=== PATIENT | female | born 1940 | race Caucasian/White ===

== ENCOUNTER 2017-12-25 22:17 | Emergency (ER) | payer OTHER ==
[2017-12-25 22:29] VITALS: BP 139/90; PULSE 81; TEMP 98.1; BMI 27.4
--- NOTE | 2017-12-25 22:38 | PDOC ---
History of Present Illness - General Chief Complaint: Injury Stated Complaint: DISLOCATED FINGER Time Seen by Provider: 12/25/17 22:36 History Source: Patient, Family Exam Limitations: No Limitations - History of Present Illness Initial Comments: 77 YOF with h/o ILD, HTN, HLD, GERD, PNA, and COPD who p/w GLF with right finger injury and pain to the right side of her body. The daughter notes that family members witnessed her fall onto her right side as a result of tripping because the area was poorly lit. The patient denies any preceding symptoms and notes that this was a simple [id number]-fsi-[id number], and she denies losing consciousness. She held her right hand up to avoid hitting her head on the floor , resulting in the finger injury. She was able to walk around after the incident and has been having right lower rib pain, but no SOB, abdominal pain, hip pain, vision changes, numbness, tingling, focal weakness, difficulty balancing, or other symptoms. Past History - Past Medical History Allergies/Adverse Reactions: Allergies Allergy/AdvReac Type Severity Reaction Status Date / Time Penicillins Allergy Verified 12/25/17 23:02 Home Medications: Ambulatory Orders Acetaminophen [Tylenol .Extra-Strength -] 1,000 mg PO Q6H PRN 06/26/14 Omeprazole [Prilosec] 40 mg PO DAILY 06/26/14 Albuterol Sulfate Inhaler - [Ventolin HFA Inhaler -] 2 inh PO Q4H PRN #1 inh levoFLOXacin [Levaquin -] 750 mg PO DAILY #3 tablet 06/30/14 predniSONE [Deltasone -] 10 mg PO ASDIR #21 tab 06/30/14 COPD: Yes DVT: No GI Disorders: Yes (gerd) - Suicide/Smoking/Psychosocial Hx Smoking History: Never smoked Have you smoked in the past 12 months: No Information on smoking cessation initiated: No Hx Alcohol Use: No Drug/Substance Use Hx: No Substance Use Type: None Review of Systems - Review of Systems Able to Perform ROS?: Yes Constitutional: No: Chills, Fever, Unexplained wgt Loss HEENTM: No: Nose Congestion, Throat Pain Respiratory: No: Cough, Shortness of Breath Cardiac (ROS): Yes: Other (rib pain). No: Chest Pain, Palpitations ABD/GI: No: Constipated, Diarrhea, Nausea, Vomiting : No: Burning, Dysuria Musculoskeletal: Yes: Other (right 4th finger injury). No: Back Pain, Neck Pain Integumentary: No: Bruising, Rash Neurological: No: Headache, Numbness, Tingling, Weakness, Dizziness Endocrine: No: Unexplained Weight Gain, Unexplained Weight Loss *Physical Exam - Vital Signs Last Vital Signs Temp Pulse Resp BP Pulse Ox 98.1 F 81 20 139/90 96 12/25/17 22:21 12/25/17 22:21 12/25/17 22:21 12/25/17 22:21 12/25/17 22:21 - Physical Exam General Appearance: Yes: Nourished, Appropriately Dressed, Other (intermittent mild distress, pleasant elderly female answering questions appropriately, Luxembourgish-speaking, accompanied by family) HEENT: positive: EOMI, DAVID, Normal Voice, Hearing Grossly Normal, Other (no cephalohematoma, no scalp laceration, no raccoon eyes, no jasso sign, no hemotympanum, no CSF rhinorrhea/otorrhea). negative: Scleral Icterus (R), Scleral Icterus (L), Nasal Congestion Neck: positive: Trachea midline, Supple. negative: Tender, Rigid Respiratory/Chest: positive: Lungs Clear, Normal Breath Sounds. negative: Respiratory Distress, Crackles, Rhonchi, Stridor, Wheezing Cardiovascular: positive: Regular Rhythm, Regular Rate, S1, S2, Murmur (1/6 systolic). negative: Edema, JVD Gastrointestinal/Abdominal: positive: Normal Bowel Sounds, Flat, Soft. negative : Tender, Organomegaly, Pulsatile Mass, Guarding Musculoskeletal: positive: Normal Inspection. negative: Decreased Range of Motion, Vertebral Tenderness Extremity: positive: Normal Capillary Refill, Normal Inspection, Normal Range of Motion, Other (right 4th finger with ulnar deviation of the portion distal to the PIP joint with developing ecchymosis, radial and ulnar pulses intact, no skin tear or laceration or abrasion). negative: Tender, Cyanosis Integumentary: positive: Normal Color, Dry, Warm, Bruising (right 4th finger). negative: Erythema, Rash Neurologic: positive: metal tube cutter II-XII NML intact, Fully Oriented, Alert, Normal Mood/ Affect, Normal Response, Motor Strength 5/5, Responsive, Numbness (mild to right 4th fingertip), Finger to Nose. negative: EOM Palsy, Facial Droop, Confused, Disoriented Medical Decision Making - Medical Decision Making 12/25/17 23:06 Pt p/w fall and head injury. Initial Vital Signs Temp Pulse Resp BP Pulse Ox 98.1 F 81 20 139/90 96 12/25/17 22:21 12/25/17 22:21 12/25/17 22:21 12/25/17 22:21 12/25/17 22:21 Exam: right 4th finger deformity with developing ecchymosis and mildly decreased sensation distally, GCS 15, protecting airway, bilateral breath sounds , no flail chest, ttp right inferior lateral ribs without crepitus or deformity or stepoff, abdomen soft, pelvis stable, no thigh hematoma, PERRLA, moving all extremities, no cephalohematoma, no scalp laceration, no raccoon eyes, no jasso sign, no hemotympanum, no CSF rhinorrhea/otorrhea. DDX IBNLT: scalp contusion, concussion, ICH, skull fracture, facial bone fracture W/U ordered: Head and C-spine CT TX ordered: Tylenol CXR: NADP XR Rt Fingers (Pre-reduction): Dislocation at the PIP with displacement and angulation without obvious fxr. Rt 4th finger reduced after nerve block, improved alignment, patient tolerated well. XR Rt Fingers (Post-reduction): Reassessment: Patient wants to go home, states pain improved. Repeat VS: DISCHARGE The Pt has gotten significant relief of symptoms with ED medications. They have been observed without AMS, n/v, LOC, or focal neuro findings in the ED. Workup is not concerning for emergency-level pathology at this time. The Pt is appropriate for discharge with close outpatient follow up. They are comfortable with this plan and will follow up with their PCP in 1-3 days. Referral information is given for Dr. Rosen for hand surgery f/u. Return precautions for concussion and CHI are discussed and they will come back to the ER if necessary. *DC/Admit/Observation/Transfer Diagnosis at time of Disposition: Fall from ground level Finger fracture, right Qualifiers: Encounter type: initial encounter Finger: ring finger Fracture type: closed Phalanx: proximal Fracture alignment: displaced Qualified Code(s): S62.614A - Displaced fracture of proximal phalanx of right ring finger, initial encounter for closed fracture - Discharge Dispostion Condition at time of disposition: Stable Decision to Admit order: No - Referrals Referrals: Ismael Rosen MD [Staff Physician] - - Patient Instructions Printed Discharge Instructions: DI for Finger Fracture Additional Instructions: You were seen in the ER for a fall and a finger fracture. We did x-rays and CT scans, and we fixed the alignment of the finger. The alignment is not perfect because you probably tore a ligament in your finger. After our assessment, we do not believe you are having a medical emergency at this time, and we believe you are safe to go home. Please keep your finger in the finger splint and follow up with the hand surgeon. We are giving you referral information for the hand surgeon. Call their clinic as soon as possible tomorrow morning, tell them you were seen in the ER, and tell them you need an appointment. If you have any new or worsening symptoms, please come back to the ER at any time (24 hours a day). If you are having severe or life threatening symptoms, or symptoms that make it unsafe to drive or have someone drive you, please call 911. Usted fue visto en la estrellita de emergencias por hemalatha cada y hemalatha fractura de dedo. Hicimos patience X y tomografas computarizadas, y reparamos la alineacin del dedo. La alineacin no es perfecta porque probablemente se rompi un ligamento en el dedo. Despus de nuestra evaluacin, no creemos que est teniendo hemalatha emergencia mdica en manas momento, y creemos que est seguro de irse a casa. Por favor, mantenga lao dedo en la frula del dedo y pardeep un seguimiento con el cirujano de la mano. Le estamos dando informacin de referencia para el cirujano de la mano. Llame a lao clnica lo ms pronto posible maana por la maana, dgales que lo vieron en la estrellita de emergencias y dgales que necesita hemalatha garland. Si tiene sntomas nuevos o que empeoran, vuelva a la estrellita de emergencias en cualquier momento (las 24 horas del da). Si tiene sntomas graves o que amenazan la silverio, o sntomas que hacen que sea inseguro conducir o que alguien lo lleve, llame al 911. Print Language: GUAMANIAN - Post Discharge Activity
[2017-12-25] MEDS ORDERED: LIDOCAINE HCL 1%, 10 MG/ML (50 mL VIAL) SQ ONE (22:55)
[2017-12-25] MEDS ORDERED: ACETAMINOPHEN 500 MG TABLET (FP) PO ONE (22:55)
--- NOTE | 2017-12-25 22:57 | PDOC ---
Attending Attestation - Resident Resident Name: Kanika Christopher - ED Attending Attestation I have performed the following: I have examined & evaluated the patient, The case was reviewed & discussed with the resident, I agree w/resident's findings & plan, Exceptions are as noted <Alfredo Espinoza - Last Filed: 12/25/17 22:57> - HPI HPI: 12/25/17 23:05 The patient is a 77 year old female, accompanied by daughter. with a past medical history of ILD, HTN, HLD, GERD, PNA, and COPD who presents to the emergency department with right finger pain and right chest wall pain. Today the patient fell and landed on her right hand. She believes that she dislocated her finger on her right hand. She describes her chest wall pain as musculoskeletal. - Physicial Exam PE: 12/25/17 23:05 GENERAL: Well-appearing, well-nourished. No apparent distress. HEENT: Normocephalic, atraumatic. PERRL, EOM intact. CARDIOVASCULAR: Normal S1, S2. Regular rate and rhythm. PULMONARY: Clear to auscultation bilaterally. ABDOMEN: Soft, non-distended, non-tender. EXTREMITIES: (+) Normal ROM in all four extremities. Dislocated right 4th metacarpal SKIN: Warm, dry. No rash NEUROLOGICAL: No focal neurological deficits. - Medical Decision Making 12/25/17 23:05 Documentation prepared by Leo Ricardo, acting as medical laboratory manager for Alfredo Espinoza DO. <Leo Ricardo - Last Filed: 12/25/17 23:05>
[2017-12-25] MEDS ORDERED: LIDOCAINE HCL 1%, 10 MG/ML (20ML VIAL) ONE (23:20)
[2017-12-25] MEDS ORDERED: ACETAMINOPHEN 325 MG TABLET (FP) ONE (23:20)
== END 2017-12-26 03:06 | disposition home or self-care (01) ==
LOC: JER 22:17
PROC: 0PSTXZZ Reposition Right Finger Phalanx, External Approach (ICD-10-PCS; principal; 2017-12-25)
DX: S62.614A Displaced fracture of proximal phalanx of right ring finger, initial encounter for closed fracture (principal); W18.39XA Other fall on same level, initial encounter; Y93.89 Activity, other specified; Y92.89 Other specified places as the place of occurrence of the external cause; Y99.8 Other external cause status; I10 Essential (primary) hypertension; E78.5 Hyperlipidemia, unspecified; K21.9 Gastro-esophageal reflux disease without esophagitis; J44.9 Chronic obstructive pulmonary disease, unspecified
CPT/HCPCS: 71046-TC-FY; 73140-TC-RT-FY; 99282-25

== ENCOUNTER 2018-01-06 11:41 | Day surgery (SDC) | payer OTHER ==
[2018-01-03 12:59] VITALS: BMI 25.2
[~2018-01-06 11:41] MED LIST: ceFAZolin SODIUM 1 GM VIAL IVPB ONE
--- NOTE | 2018-01-06 12:32 | HP ---
Admitting History and Physical - Admission Chief Complaint: right ring finger fracture History of Present Illness: 77 YOF with h/o ILD, HTN, HLD, GERD, PNA, and COPD who p/w GLF with right finger injury and pain to the right side of her body. The daughter notes that family members witnessed her fall onto her right side as a result of tripping because the area was poorly lit. The patient denies any preceding symptoms and notes that this was a simple [id number]-rxg-grrj, and she denies losing consciousness. She held her right hand up to avoid hitting her head on the floor , resulting in the finger injury. She sustained a right ring finger proximal phalanx fracture. She is in today for ORIF. History Source: Patient, Medical Record Limitations to Obtaining History: No Limitations - Past Medical History Cardiovascular: Yes: HTN, Hyperlipdemia Gastrointestinal: Yes: GERD ...: No - Smoking History Smoking history: Never smoked Have you smoked in the past 12 months: No - Alcohol/Substance Use Hx Alcohol Use: No Home Medications - Allergies Allergies/Adverse Reactions: Allergies Allergy/AdvReac Type Severity Reaction Status Date / Time Penicillins Allergy Severe Verified 01/06/18 12:43 - Home Medications Home Medications: Ambulatory Orders Acetaminophen [Tylenol .Extra-Strength -] 1,000 mg PO Q6H PRN 06/26/14 Omeprazole [Prilosec] 20 mg PO DAILY 06/26/14 Albuterol Sulfate Inhaler - [Ventolin HFA Inhaler -] 2 inh PO Q4H PRN #1 inh Fluticasone/Vilanterol [Breo Ellipta 100-25 Mcg INH] 1 inh IH DAILY 01/03/18 Cetirizine HCl [Zyrtec -] 10 mg PO DAILY 01/06/18 Family Disease History - Family Disease History Family Disease History: CA: Father (Lung cancer) Review of Systems - Review of Systems Constitutional: denies: Chills, Fever Eyes: denies: Blurred Vision, Recent Change in Vision HENT: denies: Throat Pain, Toothache Cardiovascular: denies: Chest Pain, Palpitations Respiratory: denies: Cough, SOB Gastrointestinal: denies: Abdominal Pain, Constipation, Diarrhea Genitourinary: denies: Discharge, Dysuria, Flank Pain Breasts: reports: No Symptoms Reported. denies: Pain Musculoskeletal: denies: Muscle Pain, Muscle Weakness Integumentary: denies: Incision, Rash, Wound Neurological: denies: Seizure, Syncope Endocrine: denies: Unexplained Weight Gain, Unexplained Weight Loss Hematology/Lymphatic: denies: Easily Bruised, Excessive Bleeding Psychiatric: denies: Anxiety, Depression Physical Examination Constitutional: Yes: Well Nourished, No Distress, Calm Eyes: Yes: Conjunctiva Clear, EOM Intact HENT: Yes: Atraumatic, Normocephalic Neck: Yes: Supple, Trachea Midline Cardiovascular: Yes: Regular Rate and Rhythm, S1, S2 Respiratory: Yes: Regular, CTA Bilaterally Gastrointestinal: Yes: Normal Bowel Sounds, Soft. No: Tenderness ...Rectal Exam: Yes: Deferred Renal/: No: CVA Tenderness - Left, CVA Tenderness - Right Musculoskeletal: No: Muscle Pain, Muscle Weakness Extremities: No: Cool, Cyanosis Edema: Yes Edema: RUE: 1+ (right hand ring finger swelling and bruising ) Peripheral Pulses: Left Radial: 2+, Right Radial: 2+, Left Doralis Pedis: 2+, Right Dorsalis Pedis: 2+ Integumentary: No: Jaundice, Rash Neurological: Yes: Alert, Oriented Psychiatric: Yes: Alert, Oriented Imaging - Results X-ray: Report Reviewed, Image Reviewed (Right ring finger proximal phalanx displaced fractrue, distal shaft) Problem List - Problems (1) Fracture of proximal phalanx of ring finger Assessment/Plan: Right ring finger fracture, closed and displaced for ORIF NPO Discussed with patient risks, benefits and alternatives of ORIF right ring finger proximal phalanx, including but not limited to bleeding, infection, injury to adjacent structures, loss of function, amputation need for further procedures, ; alternatives include antibiotics, delayed or no surgery - risks of this include failure of nonoperative therapy, loss of function, recurrence, . Patient desires to proceed with operation - will take to OR for above. Informed consent signed for same. Code(s): S62.618A - DISP FX OF PROXIMAL PHALANX OF OTH FINGER, INIT FOR CLOS FX Qualifiers: Encounter type: subsequent encounter Fracture type: closed Fracture alignment: displaced Laterality: right Fracture healing: with malunion Qualified Code(s): S62.614P - Displaced fracture of proximal phalanx of right ring finger, subsequent encounter for fracture with malunion (2) Finger fracture, right Code(s): S62.609A - FRACTURE OF UNSP PHALANX OF UNSP FINGER, INIT FOR CLOS FX Qualifiers: Encounter type: initial encounter Finger: ring finger Fracture type: closed Phalanx: proximal Fracture alignment: displaced Qualified Code(s): S62.614A - Displaced fracture of proximal phalanx of right ring finger, initial encounter for closed fracture (3) COPD (chronic obstructive pulmonary disease) Code(s): J44.9 - CHRONIC OBSTRUCTIVE PULMONARY DISEASE, UNSPECIFIED (4) Cough Code(s): R05 - COUGH (5) Wheezing Code(s): R06.2 - WHEEZING
--- NOTE | 2018-01-06 12:57 | OP ---
Operative Note - Note: Operative Date: 01/06/18 Pre-Operative Diagnosis: right ring finger proximal phalanx Operation: ORIF of right ring finger proximal phalanx Findings: displaced right ring finger subcondylar fracture of the neck. Implants: 0.45 k-wire Post-Operative Diagnosis: Same as Pre-op Surgeon: Ismael Rosen Anesthesia: General, Local (marcaine 0.5%) Estimated Blood Loss (mls): 1 Fluid Volume Replaced (mls): 400 (LR) Operative Report Dictated: Yes
--- NOTE | 2018-01-06 13:01 | DS ---
Physical Examination Vital Signs: Vital Signs Temperature Pulse Rate Respiratory Rate Blood Pressure O2 Sat by Pulse Oximetry (%) 95 01/06/18 12:48 Constitutional: Yes: Well Nourished, No Distress, Calm Eyes: Yes: Conjunctiva Clear, EOM Intact HENT: Yes: Atraumatic, Normocephalic Neck: Yes: Supple, Trachea Midline Cardiovascular: Yes: Regular Rate and Rhythm, S1, S2 Respiratory: Yes: Regular, CTA Bilaterally Gastrointestinal: Yes: Normal Bowel Sounds, Soft ...Rectal Exam: Yes: Deferred Renal/: No: CVA Tenderness - Left, CVA Tenderness - Right Musculoskeletal: No: Muscle Pain, Muscle Weakness Extremities: No: Cool, Cyanosis Edema: No Peripheral Pulses WNL: Yes Peripheral Pulses: Left Radial: 2+, Right Radial: 2+ Wound/Incision: Yes: Clean/Dry, Well Approximated, Dressing Dry and Intact Neurological: Yes: Alert, Oriented Psychiatric: Yes: Alert, Oriented Discharge Summary Reason For Visit: DISP FX OF PROXIMAL PHALANX OF RIGHT RING FINGER, Current Active Problems Fracture of proximal phalanx of ring finger (Acute) Procedures: Principal: ORIF right ring finger proximal phalanx fracture Hospital Course: admitted for ambulatory surgery. uneventful surgical procedure. stable for discharge home with a followup plan. Condition: Improved - Instructions Diet, Activity, Other Instructions: Postoperative instructions: You had an ORIF of right ring finger proximal phalanx fracture on 01/06/[address] Ismael Rosen of [facility]. Activity: Resume your usual activities gradually, but no heavy exertion or lifting more than 10-15 pounds for 4-6 weeks. PLEASE KEEP RIGHT ARM SPLINT IN PLACE CLEAN AND DRY UNTIL FOLLOWUP. Eat lightly at first, but advance to your usual diet as tolerated. Pain: For pain, you may use and alternate Tylenol (acetaminophen) and/or ibuprofen every 6 hours each as needed; this means that you can take one OR the other at 3-hour intervals. If you are prescribed a Tylenol/narcotic combination for severe pain, use it instead of plain Tylenol as needed and switch back when your pain starts decreasing. Do not take more than 4000mg of acetaminophen in a day. Take medications as prescribed or indicated on the labeling. Follow-up: Call Dr. Rosen' office at [phone] to make your postop appointment (Saturday 1-2 weeks after surgery as advised). Clinic is held in the [facility] on the first floor of [facility]. Call the office if you have: * increasing pain not responsive to pain medication * fever of 101F or higher * unusual or increasing bleeding or drainage from wounds * increasing redness or swelling at wound sites Also, see your primary medical doctor within 1-2 weeks. Disposition: HOME - Home Medications Comprehensive Discharge Medication List: Ambulatory Orders Acetaminophen [Tylenol .Extra-Strength -] 1,000 mg PO Q6H PRN 06/26/14 Omeprazole [Prilosec] 20 mg PO DAILY 06/26/14 Albuterol Sulfate Inhaler - [Ventolin HFA Inhaler -] 2 inh PO Q4H PRN #1 inh Fluticasone/Vilanterol [Breo Ellipta 100-25 Mcg INH] 1 inh IH DAILY 01/03/18 Cetirizine HCl [Zyrtec -] 10 mg PO DAILY 01/06/18
[2018-01-06] MEDS ORDERED: MIDAZOLAM HCL 2 MG/2 ML SINGLE DOSE VIAL ONE (13:08)
[2018-01-06] MEDS ORDERED: CLINDAMYCIN PHOSPHATE 600 MG/4 ML VIAL IVPB ONE (13:32)
[2018-01-06] MEDS ORDERED: BUPIVACAINE HCL/PF (5 MG/ML) 30 ML VIAL IJ ONE ×2 (13:38)
[2018-01-06] MEDS ORDERED: PROMETHAZINE HCL 25 MG/1 ML VIAL IVPUSH PRN (14:10)
[2018-01-06] MEDS ORDERED: oxyCODONE HCL 5 MG TABLET PO PRN (14:10)
[2018-01-06] MEDS ORDERED: ONDANSETRON 4 MG/2 ML VIAL IVPUSH PRN (14:10)
[2018-01-06] MEDS ORDERED: LACTATED RINGERS SOLUTION 1,000 ML IV SCH (14:15)
[2018-01-06 15:37] VITALS: TEMP 98
[2018-01-06 16:37] VITALS: BP 126/62; PULSE 82
--- NOTE | 2018-01-06 21:33 | OP ---
DATE OF OPERATION: 01/06/2018 PREOPERATIVE DIAGNOSIS: Right ring finger proximal phalanx fracture, displaced. POSTOPERATIVE DIAGNOSIS: Right ring finger proximal phalanx fracture, displaced. PROCEDURE: Open reduction and internal fixation of right ring finger proximal phalanx fracture. ATTENDING SURGEON: Ismael Rosen MD ANESTHESIA: General with local. Local consisted of 0.5 Marcaine. A total of 7 mL was given in an area block fashion. ESTIMATED BLOOD LOSS: 1 mL INTRAVENOUS FLUID REPLACED: LR 400 mL. IMPLANT: A 0.45 Natalya wire cut to length and size. INDICATION: Patient is presenting after a displaced fracture, 69-year-old female after a fall, of right ring finger. She was reduced in the ED unsuccessfully 2 times, followed up in clinic with us. She was counseled regarding about the need for fracture fixation, signed informed consent. She was explained the risks, benefits, and alternatives, and she was taken for the procedure. DESCRIPTION OF PROCEDURE: Patient was brought to the operating room and placed in supine position on the operating table with the right arm extended at 90 degrees perpendicular to the body's midline axis at the shoulder. The right arm was prepped and draped into a standard surgical field. Patient had bilateral lower extremity SCDs placed. She received intravenous clindamycin 900 mg, given her PENICILLIN allergy. She had a tourniquet placed, and she was induced with general anesthesia. An LMA airway was placed without incident. We proceeded first with confirmation of the operative site. A formal timeout was completed, identifying the operative site and procedure. We confirmed first the displaced fracture with a mini C-arm, and under fluoroscopy, it was clear that there was a displaced fracture, just subcondylar in the distal shaft towards the neck of the proximal phalanx. This was taken in 2 views and saved. We then proceeded with a midline dorsal incision with a 15-blade scalpel. After the skin was marked, it was incised and deepened and widened through the superficial veins, where bipolar was used to control them, down to the extensor everett. The extensor everett was identified and opened in the midline with a plan for approximation postoperatively. We then proceeded with identification of the fracture itself. The fracture was at the neck of the proximal phalanx. It was debrided of early callus formation which was soft. It was debrided with rongeur. Once the fracture was mobile, we then proceeded with debridement of the fracture site to clean and viable bone. The finger was reduced and then held with a clamp. A Natalya wire was placed through and through the metacarpal head in a retrograde fashion, through the midline axis of the proximal phalanx. It was then loaded through and through the midline axis of the digit, into the middle phalanx and through the distal phalanx and retrieved, reducing the fracture and holding the reduction in place. There was adequate compression across the fracture with a single Natalya wire. The Natalya wire was made extrinsic to the MCP joint and allowed for a normal alignment of the ray. The site was irrigated. The Natalya wire was bent and cut to shape. The extensor tendon was then repaired in the midline with 4-0 Vicryl using buried figure-of-8's. Once complete, we proceeded then with irrigation of the site again and closure of the skin with a single running 4-0 nylon along the length of the incision, completing our open reduction and internal fixation. The patient was then splinted in an extended radial gutter splint on the right in a position of function at the wrist. Counts were correct postoperatively. The fixation was documented with x-ray/fluoroscopy and sent to Radiology. MD MIKKI Bergeron/[id number]
== END 2018-01-06 16:15 | disposition home or self-care (01) ==
LOC: JASU-SURG 11:41
PROC: 0PST04Z Reposition Right Finger Phalanx with Internal Fixation Device, Open Approach (ICD-10-PCS; principal; 2018-01-06 13:00)
DX: S62.614D Displaced fracture of proximal phalanx of right ring finger, subsequent encounter for fracture with routine healing (principal); W19.XXXD Unspecified fall, subsequent encounter
CPT/HCPCS: 26735; C1713; 76000-TC-FY; 86850; 86900; 86901; 94760

== ENCOUNTER 2022-03-21 18:06 | Inpatient (IN) | payer OTHER ==
[2022-03-21 18:24] VITALS: BMI 25.4
[2022-03-21] MEDS ORDERED: ACETAMINOPHEN 1000 MG/100 ML BAG IVPB ONE (21:15)
[2022-03-21] MEDS ORDERED: ACETAMINOPHEN INJECTION 100 ML IVPB ONE (21:30)
[2022-03-21 22:17] LABS: EPI CELLS 10 /uL (0-25.1); HYALINE CASTS 1 /uL (0-3.1); URINE APPEARANCE CLEAR; URINE BACTERIA 51 /uL (0-1359); URINE BILIRUBIN NEGATIVE (NEGATIVE); URINE COLOR YELLOW; URINE GLUCOSE (UA) NEGATIVE (NEGATIVE); URINE KETONE NEGATIVE (NEGATIVE); URINE LEUK ESTERASE 2+ (NEGATIVE); URINE NITRITE NEGATIVE (NEGATIVE); URINE PROTEIN NEGATIVE (NEGATIVE); URINE RBC 15 /uL (0-23.9); URINE WBC 19 /uL (0-25.8)
[2022-03-21 22:20] LABS: BASO % 0.8 % (0-2.0); EOS % 1.8 % (0-4.5); HEMATOCRIT 30.4 % (32.4-45.2); HEMOGLOBIN 9.7 GM/dL (10.7-15.3); LYMPH % 12.3 % (8-40); MCH 25.4 pg (25.7-33.7); MCHC 31.8 g/dl (32.0-36.0); MEAN CELL VOLUME 79.8 fl (80-96); MEAN PLT VOLUME 7.2 fl (7.5-11.1); MONO % 7.7 % (3.8-10.2); NEUT % 77.4 % (42.8-82.8); PLATELET COUNT 275 10^3/uL (134-434); RBC 3.81 M/mm3 (3.60-5.2); RDW 19.9 % (11.6-15.6); WHITE BLOOD COUNT 8.8 K/mm3 (4.0-10.0)
[2022-03-21 22:41] LABS: BLOOD UREA NITROGEN 9.7 mg/dL (7-18); CALCIUM 8.7 mg/dL (8.5-10.1)
[2022-03-21 22:44] LABS: CREATININE 0.7 mg/dL (0.55-1.3)
[2022-03-21 22:46] LABS: BILIRUBIN,TOTAL 0.5 mg/dL (0.2-1); TOT PROT 6.6 g/dl (6.4-8.2)
[2022-03-22 09:07] LABS: BASO % 0.6 % (0-2.0); EOS % 3.8 % (0-4.5); HEMATOCRIT 33.2 % (32.4-45.2); HEMOGLOBIN 10.4 GM/dL (10.7-15.3); LYMPH % 21.4 % (8-40); MCH 25.2 pg (25.7-33.7); MCHC 31.5 g/dl (32.0-36.0); MEAN PLT VOLUME 7.1 fl (7.5-11.1); MONO % 9.9 % (3.8-10.2); NEUT % 64.3 % (42.8-82.8); PLATELET COUNT 285 10^3/uL (134-434); RBC 4.15 M/mm3 (3.60-5.2); RDW 20.2 % (11.6-15.6); WHITE BLOOD COUNT 5.4 K/mm3 (4.0-10.0)
[2022-03-22] MEDS ORDERED: ACETAMINOPHEN 325 MG TABLET (FP) PO PRN (09:19)
[2022-03-22 09:37] LABS: CALCIUM 8.5 mg/dL (8.5-10.1); MAGNESIUM 2.4 mg/dL (1.8-2.4)
[2022-03-22 09:40] LABS: CREATININE 0.6 mg/dL (0.55-1.3); PHOSPHOROUS 4.4 mg/dL (2.5-4.9)
[2022-03-22 09:41] LABS: BILIRUBIN,TOTAL 0.6 mg/dL (0.2-1)
[2022-03-22 09:42] LABS: TOT PROT 6.7 g/dl (6.4-8.2)
[2022-03-22] MEDS: POLYETHYLENE GLYCOL (HEALTHYLAX) 3350 17 GM PACKET PO SCH (09:54)
[2022-03-22] MEDS ORDERED: POLYETHYLENE GLYCOL (HEALTHYLAX) 3350 17 GM PACKET ONE (09:57)
[2022-03-22] MEDS ORDERED: ALBUTEROL SO4 HFA INHALER IH PRN (10:05)
[2022-03-22 10:49] LABS: RETICULOCYTES 1.04 % (0.5-1.5)
[2022-03-22] MEDS: predniSONE 10 MG TABLET (UD) PO SCH (19:46)
[2022-03-22] MEDS: MONTELUKAST NA 10 MG TABLET PO SCH (21:38)
[2022-03-23 08:32] LABS: HEMATOCRIT 30.9 % (32.4-45.2); MCHC 32.3 g/dl (32.0-36.0); MEAN CELL VOLUME 80.4 fl (80-96); MEAN PLT VOLUME 7.5 fl (7.5-11.1); PLATELET COUNT 228 10^3/uL (134-434); RBC 3.84 M/mm3 (3.60-5.2); RDW 19.9 % (11.6-15.6); WHITE BLOOD COUNT 5.7 K/mm3 (4.0-10.0)
[2022-03-23 08:54] LABS: CALCIUM 7.8 mg/dL (8.5-10.1)
[2022-03-23 08:55] LABS: BLOOD UREA NITROGEN 9.2 mg/dL (7-18)
[2022-03-23 08:58] LABS: CREATININE 0.5 mg/dL (0.55-1.3)
[2022-03-23] MEDS: ATORVASTATIN CA 20 MG TABLET (FP) PO SCH (10:42)
[2022-03-23] MEDS: PANTOPRAZOLE 20 MG TABLET PO SCH (10:42)
[2022-03-23] MEDS: predniSONE 10 MG TABLET (UD) PO SCH (10:42)
[2022-03-23] MEDS: POLYETHYLENE GLYCOL (HEALTHYLAX) 3350 17 GM PACKET PO SCH (10:43)
[2022-03-23] MEDS ORDERED: REMDESIVIR 200 MG in SODIUM CHLORIDE 250 ML IVPB ONE (12:00)
[2022-03-23] MEDS: BUDESONIDE/FORMETEROL FUMARATE 80/4.5 mcg INHALER IH SCH (12:38)
[2022-03-23] MEDS: DEXAMETHASONE SOD PHOSPHATE 10 MG/1 ML VIAL IVPUSH SCH (14:11)
[2022-03-23 16:48] LABS: CALCIUM 8.3 mg/dL (8.5-10.1)
[2022-03-23 16:49] LABS: ALBUMIN 2.7 g/dl (3.4-5.0)
[2022-03-23 16:52] LABS: CREATININE 0.6 mg/dL (0.55-1.3)
[2022-03-23 16:53] LABS: TOT PROT 6.3 g/dl (6.4-8.2)
[2022-03-23 16:54] LABS: BILIRUBIN,TOTAL 0.4 mg/dL (0.2-1)
[2022-03-23] MEDS: MONTELUKAST NA 10 MG TABLET PO SCH (21:31)
[2022-03-24 08:15] LABS: ALBUMIN 2.8 g/dl (3.4-5.0); BLOOD UREA NITROGEN 12.9 mg/dL (7-18); MAGNESIUM 2.5 mg/dL (1.8-2.4)
[2022-03-24 08:16] LABS: BASO % 0.2 % (0-2.0); HEMATOCRIT 31.8 % (32.4-45.2); HEMOGLOBIN 9.7 GM/dL (10.7-15.3); LYMPH % 7.9 % (8-40); MCH 24.7 pg (25.7-33.7); MCHC 30.5 g/dl (32.0-36.0); MEAN CELL VOLUME 81.1 fl (80-96); MEAN PLT VOLUME 7.8 fl (7.5-11.1); MONO % 7.5 % (3.8-10.2); NEUT % 84.4 % (42.8-82.8); PLATELET COUNT 209 10^3/uL (134-434); RBC 3.92 M/mm3 (3.60-5.2); RDW 19.4 % (11.6-15.6); WHITE BLOOD COUNT 7.1 K/mm3 (4.0-10.0)
[2022-03-24 08:18] LABS: CREATININE 0.5 mg/dL (0.55-1.3); PHOSPHOROUS 3.3 mg/dL (2.5-4.9)
[2022-03-24 08:20] LABS: BILIRUBIN,TOTAL 0.4 mg/dL (0.2-1); TOT PROT 6.5 g/dl (6.4-8.2)
[2022-03-24] MEDS: ATORVASTATIN CA 20 MG TABLET (FP) PO SCH (09:12)
[2022-03-24] MEDS: POLYETHYLENE GLYCOL (HEALTHYLAX) 3350 17 GM PACKET PO SCH (09:12)
[2022-03-24] MEDS: PANTOPRAZOLE 20 MG TABLET PO SCH (09:12)
[2022-03-24] MEDS: DEXAMETHASONE SOD PHOSPHATE 10 MG/1 ML VIAL IVPUSH SCH (09:12)
[2022-03-24] MEDS: BUDESONIDE/FORMETEROL FUMARATE 80/4.5 mcg INHALER IH SCH (09:14)
[2022-03-24] MEDS: ENOXAPARIN NA (PORCINE) 40 MG/0.4 ML DISP.SYRIN SQ SCH (11:38)
[2022-03-24] MEDS: REMDESIVIR 100 MG in SODIUM CHLORIDE 250 ML IVPB SCH (11:45)
[2022-03-24 13:25] LABS: BLOOD UREA NITROGEN 11.6 mg/dL (7-18); CALCIUM 7.4 mg/dL (8.5-10.1)
[2022-03-24 13:26] LABS: ALBUMIN 2.5 g/dl (3.4-5.0)
[2022-03-24 13:29] LABS: CREATININE 0.5 mg/dL (0.55-1.3)
[2022-03-24 13:30] LABS: BILIRUBIN,TOTAL 0.4 mg/dL (0.2-1); TOT PROT 5.8 g/dl (6.4-8.2)
[2022-03-24] MEDS: MONTELUKAST NA 10 MG TABLET PO SCH (21:03)
[2022-03-25] MEDS: ENOXAPARIN NA (PORCINE) 40 MG/0.4 ML DISP.SYRIN SQ SCH (09:24)
[2022-03-25] MEDS: ATORVASTATIN CA 20 MG TABLET (FP) PO SCH (09:25)
[2022-03-25 09:26] LABS: BASO % 0.1 % (0-2.0); EOS % 0.1 % (0-4.5); HEMATOCRIT 30.5 % (32.4-45.2); HEMOGLOBIN 9.8 GM/dL (10.7-15.3); LYMPH % 10.7 % (8-40); MCH 25.7 pg (25.7-33.7); MCHC 32.1 g/dl (32.0-36.0); MEAN CELL VOLUME 80.1 fl (80-96); MEAN PLT VOLUME 7.4 fl (7.5-11.1); MONO % 6.1 % (3.8-10.2); PLATELET COUNT 208 10^3/uL (134-434); RDW 19.4 % (11.6-15.6)
[2022-03-25] MEDS: DEXAMETHASONE SOD PHOSPHATE 10 MG/1 ML VIAL IVPUSH SCH (09:26)
[2022-03-25] MEDS: POLYETHYLENE GLYCOL (HEALTHYLAX) 3350 17 GM PACKET PO SCH (09:26)
[2022-03-25] MEDS: BUDESONIDE/FORMETEROL FUMARATE 80/4.5 mcg INHALER IH SCH (09:26)
[2022-03-25] MEDS: PANTOPRAZOLE 20 MG TABLET PO SCH (09:26)
[2022-03-25 09:52] LABS: CALCIUM 8.1 mg/dL (8.5-10.1)
[2022-03-25 09:53] LABS: ALBUMIN 2.8 g/dl (3.4-5.0); BLOOD UREA NITROGEN 13.4 mg/dL (7-18)
[2022-03-25 09:56] LABS: CREATININE 0.6 mg/dL (0.55-1.3)
[2022-03-25 09:57] LABS: BILIRUBIN,TOTAL 0.6 mg/dL (0.2-1)
[2022-03-25 09:59] LABS: TOT PROT 6.4 g/dl (6.4-8.2)
[2022-03-25] MEDS: REMDESIVIR 100 MG in SODIUM CHLORIDE 250 ML IVPB SCH (12:34)
[2022-03-25] MEDS: MONTELUKAST NA 10 MG TABLET PO SCH (21:14)
[2022-03-26] MEDS: PANTOPRAZOLE 20 MG TABLET PO SCH (09:05)
[2022-03-26] MEDS: ATORVASTATIN CA 20 MG TABLET (FP) PO SCH (09:05)
[2022-03-26] MEDS: ENOXAPARIN NA (PORCINE) 40 MG/0.4 ML DISP.SYRIN SQ SCH (09:05)
[2022-03-26] MEDS: DEXAMETHASONE SOD PHOSPHATE 10 MG/1 ML VIAL IVPUSH SCH (09:05)
[2022-03-26] MEDS: POLYETHYLENE GLYCOL (HEALTHYLAX) 3350 17 GM PACKET PO SCH (09:05)
[2022-03-26 09:42] LABS: BASO % 0.1 % (0-2.0); HEMATOCRIT 30.2 % (32.4-45.2); HEMOGLOBIN 9.5 GM/dL (10.7-15.3); LYMPH % 12.9 % (8-40); MCH 25.6 pg (25.7-33.7); MCHC 31.5 g/dl (32.0-36.0); MEAN CELL VOLUME 81.3 fl (80-96); MEAN PLT VOLUME 7.5 fl (7.5-11.1); MONO % 8.6 % (3.8-10.2); NEUT % 78.4 % (42.8-82.8); PLATELET COUNT 185 10^3/uL (134-434); RBC 3.72 M/mm3 (3.60-5.2); RDW 19.8 % (11.6-15.6); WHITE BLOOD COUNT 6.7 K/mm3 (4.0-10.0)
[2022-03-26 10:03] LABS: ALBUMIN 2.5 g/dl (3.4-5.0); BLOOD UREA NITROGEN 14.7 mg/dL (7-18); CALCIUM 7.9 mg/dL (8.5-10.1); MAGNESIUM 2.3 mg/dL (1.8-2.4)
[2022-03-26 10:06] LABS: CREATININE 0.6 mg/dL (0.55-1.3); PHOSPHOROUS 2.6 mg/dL (2.5-4.9)
[2022-03-26 10:08] LABS: BILIRUBIN,TOTAL 0.7 mg/dL (0.2-1); TOT PROT 5.9 g/dl (6.4-8.2)
[2022-03-26] MEDS ORDERED: ARTIFICIAL TEARS (POLYVINYL ALCOHOL) OPTH DROPS OU PRN (11:37)
[2022-03-26] MEDS: BUDESONIDE/FORMETEROL FUMARATE 80/4.5 mcg INHALER IH SCH (11:56)
[2022-03-26] MEDS: REMDESIVIR 100 MG in SODIUM CHLORIDE 250 ML IVPB SCH (12:13)
[2022-03-26] MEDS: MONTELUKAST NA 10 MG TABLET PO SCH (21:58)
[2022-03-27 08:24] LABS: BASO % 0.3 % (0-2.0); EOS % 0.3 % (0-4.5); HEMATOCRIT 31.8 % (32.4-45.2); HEMOGLOBIN 9.8 GM/dL (10.7-15.3); LYMPH % 13.8 % (8-40); MCH 24.7 pg (25.7-33.7); MCHC 30.8 g/dl (32.0-36.0); MEAN CELL VOLUME 80.4 fl (80-96); MEAN PLT VOLUME 7.9 fl (7.5-11.1); MONO % 10.2 % (3.8-10.2); NEUT % 75.4 % (42.8-82.8); PLATELET COUNT 204 10^3/uL (134-434); RBC 3.95 M/mm3 (3.60-5.2); RDW 19.8 % (11.6-15.6); WHITE BLOOD COUNT 7.8 K/mm3 (4.0-10.0)
[2022-03-27 08:51] LABS: ALBUMIN 2.6 g/dl (3.4-5.0); CALCIUM 7.9 mg/dL (8.5-10.1); MAGNESIUM 2.1 mg/dL (1.8-2.4)
[2022-03-27 08:53] LABS: PHOSPHOROUS 2.8 mg/dL (2.5-4.9)
[2022-03-27 08:54] LABS: CREATININE 0.5 mg/dL (0.55-1.3)
[2022-03-27 08:55] LABS: BILIRUBIN,TOTAL 0.6 mg/dL (0.2-1); TOT PROT 5.8 g/dl (6.4-8.2)
[2022-03-27] MEDS: DEXAMETHASONE SOD PHOSPHATE 10 MG/1 ML VIAL IVPUSH SCH (09:05)
[2022-03-27] MEDS: ENOXAPARIN NA (PORCINE) 40 MG/0.4 ML DISP.SYRIN SQ SCH (09:05)
[2022-03-27] MEDS: ATORVASTATIN CA 20 MG TABLET (FP) PO SCH (09:06)
[2022-03-27] MEDS: BUDESONIDE/FORMETEROL FUMARATE 80/4.5 mcg INHALER IH SCH (09:06)
[2022-03-27] MEDS: PANTOPRAZOLE 20 MG TABLET PO SCH (09:06)
[2022-03-27] MEDS: POLYETHYLENE GLYCOL (HEALTHYLAX) 3350 17 GM PACKET PO SCH (09:07)
[2022-03-27] MEDS: REMDESIVIR 100 MG in SODIUM CHLORIDE 250 ML IVPB SCH (11:33)
[2022-03-27] MEDS: MONTELUKAST NA 10 MG TABLET PO SCH (21:18)
[2022-03-27 22:12] VITALS: RESP 20
[2022-03-28 05:47] VITALS: TEMP 98.5
[2022-03-28 09:00] VITALS: BP 101/56; PULSE 83
[2022-03-28] MEDS: PANTOPRAZOLE 20 MG TABLET PO SCH (09:01)
[2022-03-28] MEDS: DEXAMETHASONE SOD PHOSPHATE 10 MG/1 ML VIAL IVPUSH SCH (09:01)
[2022-03-28] MEDS: ENOXAPARIN NA (PORCINE) 40 MG/0.4 ML DISP.SYRIN SQ SCH (09:01)
[2022-03-28] MEDS: POLYETHYLENE GLYCOL (HEALTHYLAX) 3350 17 GM PACKET PO SCH (09:01)
[2022-03-28] MEDS: ATORVASTATIN CA 20 MG TABLET (FP) PO SCH (09:01)
[2022-03-28] MEDS: BUDESONIDE/FORMETEROL FUMARATE 80/4.5 mcg INHALER IH SCH (09:02)
== END 2022-03-28 13:27 | disposition home health service (06) | DRG 178 ==
LOC: JER 18:06 → JERFT 18:06 → JERBED 23:50 → OBSVTOIN 03-22 06:59 → J4S 03-22 18:44
PROVIDERS: ADMIT Internal Medicine; ATTEND Internal Medicine
PROC: XW033E5 Introduction of Remdesivir Anti-infective into Peripheral Vein, Percutaneous Approach, New Technology Group 5 (ICD-10-PCS; principal; 2022-03-23)
DX: U07.1 COVID-19 (principal); J84.9 Interstitial pulmonary disease, unspecified; M48.54XA Collapsed vertebra, not elsewhere classified, thoracic region, initial encounter for fracture; S42.001A Fracture of unspecified part of right clavicle, initial encounter for closed fracture; R55 Syncope and collapse; R09.02 Hypoxemia; I35.0 Nonrheumatic aortic (valve) stenosis; W19.XXXA Unspecified fall, initial encounter; Y93.9 Activity, unspecified; Y92.89 Other specified places as the place of occurrence of the external cause; Y99.9 Unspecified external cause status; E78.5 Hyperlipidemia, unspecified; K21.9 Gastro-esophageal reflux disease without esophagitis; D50.9 Iron deficiency anemia, unspecified; I10 Essential (primary) hypertension
CPT/HCPCS: 36415; 70450-TC; 71046-TC-FY; 72125-TC; 72128-TC; 72131-TC; 72146-TC; 73030-TC-RT-FY; 80048; 80053; 81003; 82272; 82550; 82607; 82728; 82746; 83540; 83550; 83735; 84100; 84484; 85025; 85027; 85045; 85379; 86140; 87086; 87186; 93005; 93010; 93306-TC; 93880-TC; 97116-GP; 97161-GP; 99285-25; C9399; C9803-CS; G0378; J1100; U0003; U0005